=== PATIENT | male | born 1955 | race Caucasian/White ===

== ENCOUNTER 2021-04-05 17:29 | Emergency (ER) | payer OTHER ==
[2021-04-05] MEDS ORDERED: Bacitracin Oint 1 GM U/D Packet TOP ONE (18:19)
[2021-04-05] MEDS ORDERED: Diphtheria,Pertussis(Acell),Tetanus Vaccine 0.5 ML Syringe IM ONE (18:40)
--- NOTE | 2021-04-05 18:44 | EDM.PDOC ---
ED HPI GENERAL MEDICAL PROBLEM - General Chief Complaint: Laceration Stated Complaint: LEFT CALF FISH HOOK Time Seen by Provider: 04/05/21 18:16 Source of Information: Reports: Patient History Limitations: Reports: No Limitations - History of Present Illness Onset: Today Onset Date: 04/05/21 Duration: Hour(s):, Constant Location: Reports: Lower Extremity, Left (fish hook to calf of left lower leg) Quality: Reports: Burning Severity: Mild Improves with: Reports: Immobilization Worsens with: Reports: Movement Context: Reports: Other (fishing injury) Associated Symptoms: Reports: No Other Symptoms Left Leg Pain Score (Numeric/FACES): 2 - Related Data Allergies Allergy/AdvReac Type Severity Reaction Status Date / Time No Known Allergies Allergy Verified 04/05/21 18:30 Home Meds: Home Meds Aspirin [Halfprin] 81 mg PO DAILY 04/05/21 [History] Clopidogrel [Plavix] 75 mg PO DAILY 04/05/21 [History] atorvaSTATin Calcium [Atorvastatin Calcium] 40 mg PO DAILY 04/05/21 [History] Past Medical History Cardiovascular History: Reports: CAD, High Cholesterol, [place] Respiratory History: Reports: None Genitourinary History: Reports: None Musculoskeletal History: Reports: Fracture Neurological History: Reports: None Psychiatric History: Reports: None Endocrine/Metabolic History: Reports: None Hematologic History: Reports: None Immunologic History: Reports: None Oncologic (Cancer) History: Reports: None Dermatologic History: Reports: None - Infectious Disease History Infectious Disease History: Reports: Chicken Pox, Measles, Mumps - Past Surgical History HEENT Surgical History: Reports: Naso-Sinus Surgery Cardiovascular Surgical History: Reports: Carotid Stents, Percutaneous Transluminal Angioplasty GI Surgical History: Reports: Hernia Repair/Other Social & Family History - Living Situation & Occupation Living situation: Reports: (here on vacation from [place], [place]) ED ROS GENERAL - Review of Systems Review Of Systems: See Below Constitutional: Reports: Other (fish hook pain to left lower leg.) Skin: Reports: Other (fish hook to left lower leg) Neurological: Reports: No Symptoms Psychiatric: Reports: No Symptoms Hematologic/Lymphatic: Reports: No Symptoms Immunologic: Reports: No Symptoms ED EXAM, SKIN/RASH Exam: See Below Exam Limited By: No Limitations General Appearance: Alert, WD/WN, No Apparent Distress Skin: Warm, Dry, Other (fish hook to left posterior leg) Location, Skin: Upper Extremity, Left Characteristics: Other (fish hook 2 prongs imbedded into the distal portion of left calf) Associated features: Tenderness Lymphatic: No Adenopathy ED SKIN PROCEDURES - Foreign Body Removal Consent Obtained:: Patient Performing Doctor:: Sarika Dailey Anesthesia Type: Local (1% lidocaine with eppi.) Findings:: verbal permission to treat given by Mr. Isaac cleansed with shur-cleanse injected with Lidocaine 1% with eppi gently push prongs of fish hook thru the skin, clipped washed again with shur-cleanse 4x4 gauze, bacitracin ointment and colban applied discussed signs and signs of infection discharge to home Complications:: No Comments:: Tdap given in ER Course - Vital Signs Last Recorded V/S: Last Vital Signs Temp 97.1 F 04/05/21 18:27 Pulse 71 04/05/21 18:27 Resp 16 04/05/21 18:27 BP 137/71 04/05/21 18:27 Pulse Ox 97 04/05/21 18:27 - Orders/Labs/Meds Orders: Active Orders 24 hr Category Date Time Status Vaccine to be Administered/Admin Charge [RC] ASDIRECTED Care 04/05/21 18:40 Active Meds: Medications Discontinued Medications Generic Name Dose Route Start Last Admin Trade Name Ashkan PRN Reason Stop Dose Admin Bacitracin 1 dose 04/05/21 18:19 04/05/21 18:43 Bacitracin Oint 1 Gm U/D Packet TOP 04/05/21 18:20 1 dose ONETIME ONE Administration Diphtheria/Tetanus/Acell Pertussis 0.5 ml 04/05/21 18:40 04/05/21 18:44 Diphtheria,Pertussis(Acell),Tetanus Vaccine 0.5 Ml Syringe IM 04/05/21 18:41 0.5 ml .ONCE ONE Administration Lidocaine HCl 5 ml 04/05/21 18:17 04/05/21 18:43 Lidocaine 1% 5 Ml Sdv INJECT 04/05/21 18:18 5 ml ONETIME ONE Administration Departure - Departure Time of Disposition: 18:54 Disposition: Home, Self-Care 01 Condition: Good Clinical Impression: Removal of foreign body Fish hook injury of left lower leg Qualifiers: Encounter type: initial encounter Qualified Code(s): S89.92XA - Unspecified injury of left lower leg, initial encounter - Discharge Information *PRESCRIPTION DRUG MONITORING PROGRAM REVIEWED*: Not Applicable *COPY OF PRESCRIPTION DRUG MONITORING REPORT IN PATIENT NEEMA: Not Applicable Instructions: Puncture Wound, [id number], VIS, DTaP (Diphtheria, Tetanus, Pertussis) Vaccine - CDC (10/20/2019) Referrals: PCP,None [Primary Care Provider] - Forms: ED Department Discharge Care Plan Goals: Fish hook removal -apply antibacterial ointment to wounds for 3 days -monitor for signs of infection- increased redness, pain, drainage, fever chills or any concerns. -Tdap given in ER Sepsis Event Note (ED) - Focused Exam Vital Signs: Vital Signs Temp Pulse Resp BP Pulse Ox 04/05/21 18:27 97.1 F 71 16 137/71 97 - Problem List & Annotations (1) Fishing hook foreign body SNOMED Code(s): 113636738 Code(s): W45.8XXA - OTH FOREIGN BODY OR OBJECT ENTERING THROUGH SKIN, INIT Status: Acute Priority: High Current Visit: Yes Qualifiers: Encounter type: initial encounter Qualified Code(s): W45.8XXA - Other foreign body or object entering through skin, initial encounter (2) Fish hook injury of left lower leg SNOMED Code(s): 228076383 Code(s): S89.92XA - UNSPECIFIED INJURY OF LEFT LOWER LEG, INITIAL ENCOUNTER Status: Acute Priority: High Current Visit: Yes Qualifiers: Encounter type: initial encounter Qualified Code(s): S89.92XA - Unspecified injury of left lower leg, initial encounter (3) Removal of foreign body SNOMED Code(s): 62450032 - Removal of foreign body Status: Acute Priority: High Current Visit: Yes - Problem List Review Problem List Initiated/Reviewed/Updated: Yes - My Orders Last 24 Hours: My Active Orders 04/05/21 18:40 Vaccine to be Administered/Admin Charge [RC] ASDIRECTED - Assessment/Plan Last 24 Hours: My Active Orders 04/05/21 18:40 Vaccine to be Administered/Admin Charge [RC] ASDIRECTED Plan: Fish hook removal -apply antibacterial ointment to wounds for 3 days -monitor for signs of infection- increased redness, pain, drainage, fever chills or any concerns. -Tdap given in ER
== END 2021-04-05 18:57 | disposition home or self-care (01) ==
LOC: JP.ED 17:29
DX: S80.852A Superficial foreign body, left lower leg, initial encounter (principal); I25.10 Atherosclerotic heart disease of native coronary artery without angina pectoris; E78.00 Pure hypercholesterolemia, unspecified; I25.2 Old myocardial infarction; Z23 Encounter for immunization; Z79.82 Long term (current) use of aspirin; Z79.899 Other long term (current) drug therapy; W45.8XXA Other foreign body or object entering through skin, initial encounter
CPT/HCPCS: 90471; 90715; 99283